=== PATIENT | female | born 1950 | race Caucasian/White ===

== ENCOUNTER 2018-10-27 16:57 | Inpatient (IN) ==
[2018-10-28] MEDS ORDERED: *HR* Acetaminophen w/Cod 300-30 mg 1 TAB TABLET PO PRN ×2 (18:42→21:00)
[2018-10-28] MEDS ORDERED: Ondansetron ODT 4 MG TAB.RAPDIS PO PRN (18:42)
[2018-10-28] MEDS ORDERED: Magic Mouthwash 10 ML UD Cup PO PRN (18:42)
[2018-10-28] MEDS ORDERED: (Rosuvastatin Calcium [Crestor] 5 MG) PO SCH (18:45)
[2018-10-28] MEDS ORDERED: *HR* Warfarin 5 MG TABLET PO SCH (19:30)
[2018-10-28] MEDS: Sucralfate 1 GM TABLET PO SCH (20:40)
[2018-10-28] MEDS: *HR* Amiodarone 200 MG TABLET PO SCH (20:42)
[2018-10-28] MEDS: Doxycycline 100 MG CAPSULE PO SCH (20:43)
[2018-10-28] MEDS: Acetaminophen 325 MG TABLET PO PRN (21:40)
[2018-10-29] MEDS: Sucralfate 1 GM TABLET PO SCH ×4 (03:36→21:35)
[2018-10-29 05:23] LABS: Basophils % 0.3 %; Hematocrit 27.8 % (35.3-44.9); Hemoglobin 8.7 g/dL (11.5-15.4); Immature Granulocytes % 0.6 % (0-4); Lymphocytes # 1.6 K/mcL (0.6-4.6); Lymphocytes % 52.2 %; Mean Corpuscular HGB Conc 31.3 g/dL (31.6-35.5); Mean Corpuscular Hemoglobin 26.4 pg (28.0-33.3); Mean Corpuscular Volume 84.2 fL (83.0-100.0); Mean Platelet Volume 9.8 fL (9.4-12.4); Monocytes # 0.5 K/mcL (0.0-1.3); Monocytes % 16.7 %; Neutrophils # 0.9 K/mcL (1.6-8.9); Platelet Count 213 K/mcL (140-400); Red Cell Distribution Width 21.9 % (11.5-14.5); Segmented Neutrophils % 30.2 %
[2018-10-29 05:28] LABS: INR 1.9
[2018-10-29 05:34] LABS: Anisocytosis 1+ (Not Present); Platelet Estimate Normal (Normal)
[2018-10-29 05:44] LABS: Alanine Aminotransferase 46 Units/L (7-52); Albumin 3.1 g/dL (3.5-5.7); Albumin/Globulin Ratio 2.2 (1.1-2.2); Alkaline Phosphatase 54 Units/L (34-104); Aspartate Amino Transferase 20 Units/L (13-39); BUN/Creatinine Ratio 36 (6-26); Bilirubin,Total 0.8 mg/dL (0.3-1.0); Blood Urea Nitrogen 15 mg/dL (8-23); Calcium 8.6 mg/dL (8.6-10.3); Carbon Dioxide 35 mEq/L (23-29); Chloride 98 mEq/L (98-107); Globulin 1.4 g/dL (2.4-3.5); Glucose 82 mg/dL (70-105); Osmolality,Calculated 286 (280-300); Potassium 4.2 mEq/L (3.5-5.1); Sodium 138 mEq/L (136-145); Total Protein 4.5 g/dL (6.4-8.9); eGFR For Non-African Americans > 60 (> 60)
[2018-10-29] MEDS: Acetaminophen 325 MG TABLET PO PRN ×2 (07:24→16:02)
[2018-10-29] MEDS: CALCITONIN SALMON SYNTHETIC NS SCH (09:43)
[2018-10-29] MEDS: Loratadine 10 MG TABLET PO SCH (09:44)
[2018-10-29] MEDS: Furosemide 40 MG TABLET PO SCH (09:44)
[2018-10-29] MEDS: Multivit/Ca/Min/Fe/FA 1 TAB TABLET PO SCH (09:44)
[2018-10-29] MEDS: predniSONE 10 MG TABLET PO SCH (09:44)
[2018-10-29] MEDS: Doxycycline 100 MG CAPSULE PO SCH ×2 (09:44→20:10)
[2018-10-29] MEDS: Diltiazem CD (24hr) 120 MG CAPSULE PO SCH (09:45)
[2018-10-29] MEDS: *HR* Amiodarone 200 MG TABLET PO SCH ×2 (09:45→20:10)
--- NOTE | 2018-10-29 10:32 | Internal Med History&Physical ---
Addendum entered and electronically signed by Frank Doyle MD 10/29/18 11:36: I have personally performed a face to face evaluation on this patient. I have r eviewed and agree with the care plan. History and Exam by me shows: Patient is admitted after recent atrial fibrillation and pneumonia. She also has heart failure which may be caused by her chemotherapy. She is transferred here for strengthening because of weakness related to same. She wants to get better quickly and go home. She has small cell lung cancer and has been treated for this with chemotherapy which has made her weak and may have exacerbated her atrial fibrillation. She has been placed on immunotherapy and is to have a fourth treatment, sometime soon. Because of her situation, she does not want to be intubated. She would have CPR, cardioversion, etc. Since 2008 she has had CLL and this makes her blood counts have been normal but she is not sure about what numbers were exactly. She was recently begun on Carafate at this makes her belching so she refuses it. When we discussed this, she said she would try again. She has no known esophagitis or ulceration but will use this as a preventative. She had an episode of atrial fibrillation about 2 years ago which she expe rienced while having cataract surgery. She lives noted to have atrial fibrillation with rapid ventricular response about a year ago and has been on Coumadin, ever since. She has hypothyroidism but does not have thyroid surgery. She is treated with levothyroxine, for same. She was a longtime smoker but stopped in 2008. She rarely drinks a glass of wine. She denies drug use. She is retired and . Family history is remarkable for borderline diabetes in her mother. She wears full dentures. Patient has no complaint of chest discomfort, dyspnea, orthopnea, breathing problems, palpitations, nausea or vomiting, constipation or diarrhea, other changes in bowel habits, heartburn, difficulty with urination, kidney problems or kidney stones, fevers chills or sweats, rash or itching, seizures, headache or lightheadedness, heat or cold intolerance, blood problems or anemia, or other new complaints, except as mentioned above. Review of systems is otherwise negative. Examination: (Except as mentioned above): General: In no apparent distress, alert and oriented 3. She is wearing a back brace which limits exam, slightly. Head: Atraumatic and normocephalic. Eyes: Extraocular muscles are intact, pupils equal round and reactive to light and accommodation. Sclerae anicteric. Ears: External ears are normal to inspection and hearing is grossly normal. Nose: Patent without lesion noted. Mouth: No intraoral lesions seen. Dentition is unremarkable. Neck: Supple with trachea midline. There is no thyromegaly or adenopathy and carotids are 2+ without bruit heard. Respiratory: No use of accessory muscles. Lungs are clear throughout. Normal airflow. Cardiovascular: Irregularly irregular rhythm with rapid heart rate, without murmur appreciated. Abdomen: Bowel sounds are normal. No hepatosplenomegaly masses or tenderness. Obese and therefore difficult to palpate deeply. Patient is examined upright in chair and this also limits exam. Extremities: No cyanosis clubbing or edema. Neurological: A and O 3. Cranial nerves II through XII are intact. No focal deficits and no abnormal movements or postures. Skin: Warm and non-diaphoretic with no lesions noted. Breasts, pelvic and rectal: Not examined. INR is 1.9 and we would like to be at least 2.0.. Will watch daily, at least for a while. Will watch her heart rate, as well. Therapies as elucidated and will try to see strengthening to the point that she can be independent at home. She is to be a DNR comfort careDO NOT INTUBATE, as above. Original Note: Date of Encounter: 10/29/18 Time of Encounter: 10:20 Assessment and Plan (1) Pneumonia Current visit: Yes Status: Acute No acute issues at present. Lungs are clear throughout with the exception of basilar rales. No productive cough. Afebrile. Respiratory effort appears rel axed. Physical therapy evaluation pending. We will continue with current plan of care. Qualifiers: Pneumonia type: due to methicillin-resistant Staphylococcus aureus (MRSA) Laterality: right Lung location: upper lobe of lung Qualified Code(s): J15.212 - Pneumonia due to Methicillin resistant Staphylococcus aureus (2) Small cell lung cancer Current visit: Yes Status: Chronic No acute issues. Patient states that her pain currently has been well controlled. 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 TLSO brace and use. Patient to continue follow-up with oncology. Currently patient with palliative care consult (3) Atrial fibrillation with controlled ventricular response Current visit: No Status: Acute No acute issues. Patient's ventricular rate is less than 100. Vital signs are stable. We will continue on current medications. Denies any palpitations Internal Medicine - H&P: HPI Chief complaint: Atrial Fibrillation Admitted From: Hospital to Hospital Transfer Plans for Post Hospital Care: Home History of present illness: Ms. Downing is a 68 year old female, who was transferred here from [facility] where she was treated for atrial fibrillation with RVR and pneumonia. Patient has had a recent history of lung CA with metastasis. Patient states she continues to have slight pain to her thoracic portion of her spine. Per medical records patient has metastases to both the thoracic and lumbar spine. Patient states compliance was wearing TLSO brace whenever out of bed, stating that that has helped her pain by maintaining her alignment. Patient denies any current dyspnea or productive cough. Past Med Surg Social Fam HX - Past Medical History Medical history: atrial fibrillation, cancer, coronary artery disease, hyperlip idemia, hypertension, thyroid disease Additional medical history: CLL. Small Cell Lung Ca, Stress fractures in back. Psychiatric history: no psych history - Past Surgical History Surgical History: breast surgery, cataract, orthopedic, other Additional surgical history: left breast biopsy - Social History Smoking Status: Former smoker Smokeless Tobacco Status: No Alcohol use: none Drug use: none - Family History Mother Family Member Ethnicity: Non- Living Status: Hx Family Cardiac Disorders: Yes (cabg) Hx Family Endocrine Disorder: Yes (dm) Hx Family Neuromuscular Disorders: Yes (several strokes) Internal Medicine - H&P: Meds Levothyroxine [Synthroid] 50 mcg PO 0630 04/02/15 [History] Multivit-Min/FA/Lycopen/Lutein [Centrum Silver Tablet] 1 each PO DAILY 04/02/15 [History] Central-3/Dha/Epa/Fish Oil [Fish Oil 1,000 mg Softgel] 1,000 mg PO HS 04/02/15 [History] Prochlorperazine Maleate [Compazine] 10 mg PO Q8HR PRN #60 tablet 03/05/18 [Rx] Rosuvastatin Calcium [Crestor] 5 mg PO Q48H 03/05/18 [History] Loratadine [Claritin] 10 mg PO DAILY 06/07/18 [History] Acetaminophen w/Cod 300-30 mg [Tylenol w/Codeine #3] 1 each PO Q6HR PRN 09/10/18 [History] Warfarin [Coumadin] 2.5 mg PO MOWEFR 09/10/18 [History] Warfarin [Coumadin] 5 mg PO SUTUTHSA 09/10/18 [History] Calcitonin,Groton,Synthetic [Calcitonin-Groton] 1 spray NS DAILY 09/12/18 [History] Magic Mouthwash 5 ml PO Q4HR PRN #240 ml 10/12/18 [Rx] Pantoprazole Sodium [Protonix] 40 mg PO DAILY 10/20/18 [History] Sucralfate [Carafate] 1 gm PO QIDAC 10/20/18 [History] Amiodarone [Cordarone] 200 mg PO BID 30 Days #60 tablet 10/28/18 [Rx] Diltiazem CD (24hr) [Cardizem CD] 120 mg PO DAILY 30 Days #30 cap.er.24h 10/28/18 [Rx] Doxycycline 100 mg PO BID 3 Days #6 capsule 10/28/18 [Rx] Furosemide [Lasix] 40 mg PO DAILY 3 Days #3 tablet 10/28/18 [Rx] Magnesium Oxide [Mag-Ox] 400 mg PO DAILY tablet 10/28/18 [Rx] Ondansetron [Zofran] 8 mg PO Q8HR PRN 10/28/18 [History] predniSONE [PredniSONE] See Taper PO DAILY #70 tablet 10/28/18 [Rx] Allergy/AdvReac Type Severity Reaction Status Date / Time bacitracin AdvReac Rash Verified 10/12/18 13:32 [From Neosporin ([id number])] Neomycin AdvReac Rash Verified 10/12/18 13:32 [From Neosporin ([id number])] polymyxin B AdvReac Rash Verified 10/12/18 13:32 [From Neosporin ([id number])] All Systems PM: A 10-system review of systems was performed and is negative for pertinent findings except as documented above in the HPI. - Constitutional Constitutional: as per HPI, no chills, no fever(s), no night sweats - EENT Eyes: no change in vision, no discharge, no pain, no photophobia Ears: as per HPI, no ear discharge, no ear pain, no tinnitus Nose, mouth and throat: as per HPI, no dysphagia, no nasal discharge, no neck pain, no sore throat - Breasts Breasts: as per HPI - Cardiovascular Cardiovascular ROS IM: as per HPI, no chest pain, no diaphoresis, no dyspnea, no lightheadedness, no palpitations, no syncope - Respiratory Respiratory: as per HPI, no cough, no dyspnea, no wheezing, no excessive phlegm production - Gastrointestinal Gastrointestinal: as per HPI, no abdominal pain, no diarrhea, no hematemesis, no hematochezia, no melena, no nausea, no vomiting - Genitourinary Genitourinary: as per HPI, no change in urinary stream, no dysuria, no flank pain, no hematuria - Musculoskeletal Musculoskeletal ROS IM: as per HPI, no numbness, no tingling - Integumentary Integumentary IM: as per HPI, no rash, no unusual bruising - Neurological Neurological ROS: as per HPI, no confusion, no convulsions, no focal weakness, no numbness, no tingling, no tremor(s) - Hematologic/Lymphatic Hematologic/Lymphatic: no easy bruising - Constitutional Vitals: Temp Pulse Resp BP Pulse Ox 97.8 F 96 16 113/70 96 10/29/18 09:00 10/29/18 09:00 10/29/18 09:00 10/29/18 09:00 10/29/18 09:00 General appearance: Present: A&O X 3, pleasant - Head Head exam: Present: atraumatic, normocephalic - Eye Eye exam: Present: PERRL, conjuntiva pink, sclera anicteric Pupils: Present: PERRL - Neck Neck exam general surgery: Present: supple, trachea midline. Absent: lymphadenopathy - Respiratory Respiratory exam: Present: CTAB. Absent: accessory muscle use, rales, rhonchi, wheezes Additional comments: Lungs are clear throughout upper borden with fine basilar rales heard po steriorly. No productive cough noted. Respiratory effort appears relaxed. - Cardiovascular Cardiovascular exam: Present: irregular rhythm, RRR, +S1, +S2. Absent: diastolic murmur, gallop, rubs, systolic murmur Additional comments: Heart rate remains irregular with ventricular rate controlled less than 100 bpm - GI/Abdominal GI/Abdominal exam: Present: normal bowel sounds, soft, no peritoneal signs. Absent: distended, tenderness - Extremities Exam Extremities exam: Present: warm, radial pulses palpable and symmetrical. Absent: calf tenderness, cyanotic, pedal edema - Back Exam Additional comments: Patient with complaints of pain to her back but denies any tenderness on palpation. No obvious injury, deformity or step-offs noted on exam. TLSO brace in use - Neurological Exam Neurological exam: Present: CN II-XII intact, oriented X3, no focal deficits. Absent: pronater drift, facial droop, speech deficit - Skin Skin exam: Present: dry, intact Internal Med - H&P Results - Labs CBC & Chem 7: 10/29/18 04:35 10/29/18 04:35 Labs: Short CBC 10/29/18 Range/Units 04:35 WBC 3.1 L (4.3-11.1) K/mcL Hgb 8.7 L (11.5-15.4) g/dL Hct 27.8 L (35.3-44.9) % Plt Count 213 (140-400) K/mcL Neutrophils # 0.9 L (1.6-8.9) K/mcL BMP 10/29/18 04:35 Sodium 138 Potassium 4.2 Chloride 98 Carbon Dioxide 35 H BUN 15 Creatinine 0.42 L Glucose 82 Calcium 8.6 Liver Function 10/29/18 Range/Units 04:35 Total Bilirubin 0.8 (0.3-1.0) mg/dL AST 20 (13-39) Units/L ALT 46 (7-52) Units/L Alkaline Phosphatase 54 (34-104) Units/L Albumin 3.1 L (3.5-5.7) g/dL
[2018-10-29] MEDS ORDERED: Warfarin perPT PO PRN (13:46)
[2018-10-29] MEDS ORDERED: *HR* Warfarin 3 MG TABLET PO ONE (18:00)
[2018-10-29] MEDS ORDERED: *HR* Warfarin 2.5 MG TABLET PO SCH (18:00)
[2018-10-30] MEDS: Sucralfate 1 GM TABLET PO SCH ×4 (04:58→23:16)
[2018-10-30 07:32] LABS: INR 2.2; Prothrombin Time 24.6 Seconds (9.4-12.1)
[2018-10-30] MEDS: predniSONE 10 MG TABLET PO SCH (09:33)
[2018-10-30] MEDS: Multivit/Ca/Min/Fe/FA 1 TAB TABLET PO SCH (09:33)
[2018-10-30] MEDS: Furosemide 40 MG TABLET PO SCH (09:33)
[2018-10-30] MEDS: Loratadine 10 MG TABLET PO SCH (09:33)
[2018-10-30] MEDS: Diltiazem CD (24hr) 120 MG CAPSULE PO SCH (09:33)
[2018-10-30] MEDS: *HR* Amiodarone 200 MG TABLET PO SCH ×2 (09:33→19:56)
[2018-10-30] MEDS: Doxycycline 100 MG CAPSULE PO SCH ×2 (09:34→19:57)
[2018-10-30] MEDS: CALCITONIN SALMON SYNTHETIC NS SCH (09:34)
[2018-10-30] MEDS: Acetaminophen 325 MG TABLET PO PRN (15:13)
--- NOTE | 2018-10-30 18:01 | Internal Med Progress Note ---
Date of Encounter: 10/30/18 Time of Encounter: 17:20 - Assessment and plan (1) Small cell lung cancer Current Visit: Yes Status: Chronic Assessment and plan: No acute issues. Patient states that her pain currently has been well controlled. 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 TLSO brace and use. Patient to continue follow-up with oncology. Currently patient with palliative care consult (2) Atrial fibrillation with controlled ventricular response Current Visit: No Status: Acute Assessment and plan: Continue current regimen, including warfarin. (3) Pneumonia Current Visit: Yes Status: Acute Assessment and plan: Continue current antibiotic regimen. Wean oxygen as tolerated. Qualifiers: Pneumonia type: due to methicillin-resistant Staphylococcus aureus (MRSA) Laterality: right Lung location: upper lobe of lung Qualified Code(s): J15.212 - Pneumonia due to Methicillin resistant Staphylococcus aureus (4) Normocytic anemia Current Visit: Yes Status: Acute Assessment and plan: CBC in the morning, will obtain FOBT if down-trending. - Time Spent With Patient less than 15 minutes - Subjective Interval history: Doing well. No concern. Working with therapists. - Constitutional Vitals: Temp Pulse Resp BP Pulse Ox 97.5 F L 89 14 113/74 93 10/30/18 09:00 10/30/18 09:00 10/30/18 09:00 10/30/18 09:00 10/30/18 09:00 General appearance: Present: A&O X 3, pleasant Exam: Gen: A&Ox3, NAD. HEENT: NCAT. Neck: No palpable lymphadenopathy or thyromegaly. CV: RRR, S1S2. 2/6, systolic murmur. Capillary refill < 2 seconds. Pulm: Diminished air exchange in the left lung borden. Abd: TLSO brace noted. Neuro: Generalized weakness, otherwise non-focal. Skin: No rash. Ext: 1(+) pitting edema in bilateral LE. Internal Medicine: Result - Labs CBC & Chem 7: 10/29/18 04:35 10/29/18 04:35 - ABG Interpretation ABG results: PT/INR, D-dimer PT 24.6 Seconds (9.4-12.1) H 10/30/18 06:55 Consult Discharge Plan - Plan Referrals: Ken Watson MD [Primary Care Provider] -
[2018-10-31] MEDS: Sucralfate 1 GM TABLET PO SCH ×4 (05:25→20:33)
[2018-10-31 07:06] LABS: Hematocrit 29.4 % (35.3-44.9); Hemoglobin 9.1 g/dL (11.5-15.4); Mean Corpuscular Hemoglobin 26.6 pg (28.0-33.3); Mean Platelet Volume 9.6 fL (9.4-12.4); Platelet Count 234 K/mcL (140-400); Red Blood Count 3.42 M/mcL (3.82-4.97)
[2018-10-31 07:19] LABS: INR 1.9; Prothrombin Time 21.1 Seconds (9.4-12.1)
[2018-10-31] MEDS: Multivit/Ca/Min/Fe/FA 1 TAB TABLET PO SCH (08:42)
[2018-10-31] MEDS: *HR* Amiodarone 200 MG TABLET PO SCH ×2 (08:42→20:33)
[2018-10-31] MEDS: Acetaminophen 325 MG TABLET PO PRN (08:42)
[2018-10-31] MEDS: Diltiazem CD (24hr) 120 MG CAPSULE PO SCH (08:42)
[2018-10-31] MEDS: Doxycycline 100 MG CAPSULE PO SCH (08:42)
[2018-10-31] MEDS: Loratadine 10 MG TABLET PO SCH (08:42)
[2018-10-31] MEDS: Furosemide 40 MG TABLET PO SCH (08:43)
[2018-10-31] MEDS: CALCITONIN SALMON SYNTHETIC NS SCH (08:43)
[2018-10-31] MEDS: predniSONE 10 MG TABLET PO SCH (08:43)
--- NOTE | 2018-10-31 13:35 | Internal Med Progress Note ---
Date of Encounter: 10/31/18 Time of Encounter: 13:10 - Assessment and plan (1) Small cell lung cancer Current Visit: Yes Status: Chronic Assessment and plan: No acute issues. Patient states that her pain currently has been well controlled. 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 TLSO brace and use. Patient to continue follow-up with oncology. Currently patient with palliative care consult (2) Atrial fibrillation with controlled ventricular response Current Visit: No Status: Acute Assessment and plan: Continue current regimen, including warfarin. (3) Pneumonia Current Visit: Yes Status: Acute Assessment and plan: Continue current antibiotic regimen. Wean oxygen as tolerated. Qualifiers: Pneumonia type: due to methicillin-resistant Staphylococcus aureus (MRSA) Laterality: right Lung location: upper lobe of lung Qualified Code(s): J15.212 - Pneumonia due to Methicillin resistant Staphylococcus aureus (4) Normocytic anemia Current Visit: Yes Status: Acute Assessment and plan: CBC appears stable. Continue to monitor as appropriate. - Time Spent With Patient less than 15 minutes - Subjective Interval history: Doing well. No concern. Working with therapists. - Constitutional Vitals: Temp Pulse Resp BP Pulse Ox 97.4 F L 86 17 101/61 97 10/31/18 07:40 10/31/18 07:40 10/31/18 07:40 10/31/18 07:40 10/31/18 08:15 General appearance: Present: A&O X 3, pleasant Exam: Gen: A&Ox3, NAD. HEENT: NCAT. Neck: No palpable lymphadenopathy or thyromegaly. CV: RRR, S1S2. 2/6, systolic murmur. Capillary refill < 2 seconds. Pulm: Diminished air exchange in the left lung borden. Abd: TLSO brace noted. Neuro: Generalized weakness, otherwise non-focal. Skin: No rash. Ext: Trace pitting edema in bilateral LE. Internal Medicine: Result - Labs CBC & Chem 7: 10/31/18 06:40 10/29/18 04:35 Labs: Short CBC 10/31/18 Range/Units 06:40 WBC 3.6 L (4.3-11.1) K/mcL Hgb 9.1 L (11.5-15.4) g/dL Hct 29.4 L (35.3-44.9) % Plt Count 234 (140-400) K/mcL - ABG Interpretation ABG results: PT/INR, D-dimer PT 21.1 Seconds (9.4-12.1) H 10/31/18 06:40 Consult Discharge Plan - Plan Referrals: Ken Watson MD [Primary Care Provider] -
[2018-10-31] MEDS ORDERED: *HR* Warfarin 5 MG TABLET PO ONE (18:00)
[2018-10-31] MEDS: Magnesium Oxide 400 MG TABLET PO SCH (20:33)
[2018-11-01] MEDS: Sucralfate 1 GM TABLET PO SCH ×4 (06:30→20:40)
[2018-11-01 07:37] LABS: INR 1.7
[2018-11-01] MEDS: predniSONE 10 MG TABLET PO SCH (09:30)
[2018-11-01] MEDS: *HR* Amiodarone 200 MG TABLET PO SCH ×2 (09:30→20:40)
[2018-11-01] MEDS: Magnesium Oxide 400 MG TABLET PO SCH (09:31)
[2018-11-01] MEDS: Multivit/Ca/Min/Fe/FA 1 TAB TABLET PO SCH (09:31)
[2018-11-01] MEDS: Loratadine 10 MG TABLET PO SCH (09:31)
[2018-11-01] MEDS: Diltiazem CD (24hr) 120 MG CAPSULE PO SCH (09:31)
[2018-11-01] MEDS: Furosemide 40 MG TABLET PO SCH (09:31)
[2018-11-01] MEDS: CALCITONIN SALMON SYNTHETIC NS SCH (09:32)
--- NOTE | 2018-11-01 11:30 | Internal Med Progress Note ---
Addendum entered and electronically signed by Frank Doyle MD 11/01/18 13:30: I have personally performed a face to face evaluation on this patient. I have r eviewed and agree with the care plan. History and Exam by me shows: Patient is without complaint and wants to go home. She has been having normal bowel movements and bladder is functioning well. She denies other problems. Her pain is minimal. Discussed care with other providers and/or nursing. Patient has no complaint of chest discomfort, dyspnea, orthopnea, palpitations, nausea or vomiting, constipation or diarrhea, other changes in bowel habits, difficulty with urination, rash or itching, or other new complaints, except as mentioned above. Review of systems is otherwise negative. Examination: (Except as mentioned above): General: In no apparent distress. Alert and oriented 3. Nondiaphoretic. Head: Atraumatic and normocephalic. Respiratory: No use of accessory muscles. Lungs are clear throughout. Normal airflow. Cardiovascular: Regular rate and rhythm without murmur appreciated. Abdomen: Bowel sounds are normal. No hepatosplenomegaly mass or tenderness appreciated. Obese and therefore difficult to palpate deeply. Patient is examined upright in chair and this also limits exam. Extremities: No cyanosis clubbing or edema. Skin: Warm and non-diaphoretic with no new lesions noted. We will plan to discharge her in about 2 days. Original Note: Date of Encounter: 11/01/18 Time of Encounter: 11:28 - Assessment and plan (1) Small cell lung cancer Current Visit: Yes Status: Chronic Assessment and plan: Lung cancer with meds to thoracic and lumbar spine. Wearing TLSO brace. Pain controlled with current medication. Follow up with oncologist as scheduled. Maintaining oxygen sets at or liters per nasal cannula. (2) Atrial fibrillation Current Visit: Yes Status: Chronic Assessment and plan: Rate and rhythm controlled. Continue current medication. Continue Coumadin. Monitor INR. Qualifiers: Atrial fibrillation type: chronic Qualified Code(s): I48.2 - Chronic atrial fibrillation - Time Spent With Patient less than 15 minutes - Subjective Interval history: Participating well with therapy. Maintaining oxygen saturation greater than 92% at 4 L per nasal cannula. Wearing TLSO brace. States pain is controlled. States bowels are moving as normal. Denies fever, chills, nausea vomiting or diarrhea. Denies any increased shortness of breath or chest pain. - Constitutional Vitals: Temp Pulse Resp BP Pulse Ox 98.1 F 80 18 110/67 96 11/01/18 08:40 11/01/18 09:30 11/01/18 08:40 11/01/18 09:30 11/01/18 08:40 General appearance: Present: cooperative, A&O X 3, pleasant, no acute distress, answers questions appropriately - Head Head exam: Present: atraumatic, normocephalic - Eye Eye exam: Present: PERRL, conjuntiva pink, sclera anicteric Pupils: Present: PERRL - Neck Neck exam general surgery: Present: supple, trachea midline. Absent: lymphadenopathy - Respiratory Respiratory exam: Present: CTAB. Absent: accessory muscle use, rales, rhonchi, wheezes Additional comments: Diminished bilateral bases - Cardiovascular Cardiovascular exam: Present: RRR, +S1, +S2. Absent: diastolic murmur, gallop, rubs, systolic murmur - GI/Abdominal GI/Abdominal exam: Present: normal bowel sounds, soft, no peritoneal signs. Absent: distended, tenderness - Extremities Exam Extremities exam: Present: warm, radial pulses palpable and symmetrical. Absent: calf tenderness, cyanotic, pedal edema Additional comments: Francis hose on bilateral lower extremities - Neurological Exam Neurological exam: Present: CN II-XII intact, oriented X3, no focal deficits. Absent: pronater drift, facial droop, speech deficit - Skin Skin exam: Present: dry, intact Internal Medicine: Result - Labs CBC & Chem 7: 10/31/18 06:40 10/29/18 04:35 - ABG Interpretation ABG results: PT/INR, D-dimer PT 19.0 Seconds (9.4-12.1) H 11/01/18 06:25 Consult Discharge Plan - Plan Referrals: Ken Watson MD [Primary Care Provider] -
[2018-11-01] MEDS ORDERED: *HR* Enoxaparin 40 MG/0.4 ML SYRINGE SQ SCH (16:00)
[2018-11-01] MEDS ORDERED: *HR* Warfarin 5 MG TABLET PO ONE (18:00)
[2018-11-02] MEDS: Sucralfate 1 GM TABLET PO SCH ×4 (05:43→21:29)
[2018-11-02 06:18] LABS: INR 2.1; Prothrombin Time 23.8 Seconds (9.4-12.1)
[2018-11-02] MEDS: *HR* Amiodarone 200 MG TABLET PO SCH ×2 (07:46→19:42)
[2018-11-02] MEDS: Magnesium Oxide 400 MG TABLET PO SCH (07:46)
[2018-11-02] MEDS: Diltiazem CD (24hr) 120 MG CAPSULE PO SCH (07:46)
[2018-11-02] MEDS: Furosemide 40 MG TABLET PO SCH (07:46)
[2018-11-02] MEDS: predniSONE 10 MG TABLET PO SCH (07:46)
[2018-11-02] MEDS: Loratadine 10 MG TABLET PO SCH (07:47)
[2018-11-02] MEDS: CALCITONIN SALMON SYNTHETIC NS SCH (07:47)
[2018-11-02] MEDS: Multivit/Ca/Min/Fe/FA 1 TAB TABLET PO SCH (07:47)
--- NOTE | 2018-11-02 12:17 | Internal Med Progress Note ---
Addendum entered and electronically signed by Frank Doyle MD 11/02/18 13:01: I have personally performed a face to face evaluation on this patient. I have r eviewed and agree with the care plan. History and Exam by me shows: Patient is without complaint. She is noting that her pain has improved, and her back, significantly. Bowels and bladder are functioning well. She denies other problems. Discussed care with other providers and/or nursing. Patient has no complaint of chest discomfort, dyspnea, orthopnea, palpitations, nausea or vomiting, constipation or diarrhea, other changes in bowel habits, difficulty with urination, rash or itching, or other new complaints, except as mentioned above. Review of systems is otherwise negative. Examination: (Except as mentioned above): General: In no apparent distress. Alert and oriented 3. Nondiaphoretic. She is wearing her clamshell brace. Head: Atraumatic and normocephalic. Respiratory: No use of accessory muscles. Lungs are clear throughout. Normal airflow. Cardiovascular: Regular rate and rhythm without murmur appreciated. Abdomen: Bowel sounds are normal. No hepatosplenomegaly mass or tenderness appreciated. Obese and therefore difficult to palpate deeply. Patient is examin ed upright in chair and this also limits exam. Extremities: No cyanosis clubbing or edema. Skin: Warm and non-diaphoretic with no new lesions noted. Original Note: Date of Encounter: 11/02/18 Time of Encounter: 12:15 - Assessment and plan (1) Pneumonia Current Visit: Yes Status: Acute Assessment and plan: No acute issues. Patient's lungs are clear throughout upper [place]. Cough. Remains afebrile. Patient dyspnea physical therapy and progressed well. We will continue with current plan of care. Qualifiers: Pneumonia type: due to methicillin-resistant Staphylococcus aureus (MRSA) Laterality: right Lung location: upper lobe of lung Qualified Code(s): J15.212 - Pneumonia due to Methicillin resistant Staphylococcus aureus (2) Small cell lung cancer Current Visit: Yes Status: Chronic Assessment and plan: No acute issues. We will continue with supportive care. Patient continues with complaints of slight pain to her back at her vertebral metastasis sites. which she states is tolerable with current pain medications. Continues a TLSO. (3) Atrial fibrillation with controlled ventricular response Current Visit: No Status: Acute Assessment and plan: Currently patient's heart rate is regular with a controlled ventricular rate less than 100. Vital signs are stable. We will continue with current medications. - Time Spent With Patient less than 15 minutes - Subjective Interval history: Patient appears relaxed and currently denies any discomforts or shortness of breath. Patient denies any chest palpitations. Patient does have complaints of small amount of blood tinge in her nasal drainage when she blows her nose. - Constitutional Vitals: Temp Pulse Resp BP Pulse Ox 98.1 F 87 16 108/72 97 11/02/18 08:05 11/02/18 08:05 11/02/18 08:05 11/02/18 08:05 11/02/18 08:05 General appearance: Present: cooperative, A&O X 3, pleasant, no acute distress, answers questions appropriately - Head Head exam: Present: atraumatic, normocephalic - Eye Eye exam: Present: PERRL, conjuntiva pink, sclera anicteric Pupils: Present: PERRL - Neck Neck exam general surgery: Present: supple, trachea midline. Absent: lymphadenopathy - Respiratory Respiratory exam: Present: CTAB. Absent: accessory muscle use, rales, rhonchi, wheezes - Cardiovascular Cardiovascular exam: Present: RRR, +S1, +S2. Absent: diastolic murmur, gallop, rubs, systolic murmur - GI/Abdominal GI/Abdominal exam: Present: normal bowel sounds, soft, no peritoneal signs. Absent: distended, tenderness - Extremities Exam Extremities exam: Present: warm, radial pulses palpable and symmetrical. Absent: calf tenderness, cyanotic, pedal edema - Back Exam Additional comments: No complaints of discomforts during palpitation. No deformity or step-offs noted on palpitation. TLSO brace in place when OOB - Neurological Exam Neurological exam: Present: CN II-XII intact, oriented X3, no focal deficits. Absent: pronater drift, facial droop, speech deficit - Skin Skin exam: Present: dry, intact Internal Medicine: Result - Labs CBC & Chem 7: 10/31/18 06:40 10/29/18 04:35 - ABG Interpretation ABG results: PT/INR, D-dimer PT 23.8 Seconds (9.4-12.1) H 11/02/18 05:35 Consult Discharge Plan - Plan Referrals: Ken Watson MD [Primary Care Provider] -
[2018-11-02] MEDS ORDERED: *HR* Warfarin 2.5 MG TABLET PO ONE (18:00)
[2018-11-02] MEDS: Acetaminophen 325 MG TABLET PO PRN (19:42)
[2018-11-03] MEDS: Sucralfate 1 GM TABLET PO SCH ×2 (05:01→12:10)
[2018-11-03 05:47] LABS: INR 2.4; Prothrombin Time 27.5 Seconds (9.4-12.1)
[2018-11-03 09:01] VITALS: BP 105/68
[2018-11-03] MEDS: *HR* Amiodarone 200 MG TABLET PO SCH (09:01)
[2018-11-03] MEDS: Loratadine 10 MG TABLET PO SCH (09:01)
[2018-11-03] MEDS: Furosemide 40 MG TABLET PO SCH (09:01)
[2018-11-03] MEDS: Diltiazem CD (24hr) 120 MG CAPSULE PO SCH (09:01)
[2018-11-03] MEDS: predniSONE 10 MG TABLET PO SCH (09:01)
[2018-11-03] MEDS: Magnesium Oxide 400 MG TABLET PO SCH (09:01)
[2018-11-03] MEDS: Multivit/Ca/Min/Fe/FA 1 TAB TABLET PO SCH (09:01)
[2018-11-03] MEDS: CALCITONIN SALMON SYNTHETIC NS SCH (09:19)
--- NOTE | 2018-11-03 10:36 | Discharge Summary ---
Addendum entered and electronically signed by Frank Doyle MD 11/03/18 11:34: I have personally performed a face to face evaluation on this patient. I have r eviewed and agree with the care plan. History and Exam by me shows: She has no complaints. He is pleased to be going home. She had a "twinge" of pain in the left posterior thorax, earlier today. However, this resolved spontaneously. Bowels and bladder functioning well. She has no questions for me regarding home-going instructions. Discussed care with other providers and/or nursing. Patient has no complaint of chest discomfort, dyspnea, orthopnea, palpitations, nausea or vomiting, constipation or diarrhea, other changes in bowel habits, difficulty with urination, rash or itching, or other new complaints, except as mentioned above. Review of systems is otherwise negative. Examination: (Except as mentioned above): General: In no apparent distress. Alert and oriented 3. Nondiaphoretic. Head: Atraumatic and normocephalic. Respiratory: No use of accessory muscles. Lungs are clear throughout. Normal airflow. Cardiovascular: Regular rate and rhythm without murmur appreciated. Abdomen: Bowel sounds are normal. No hepatosplenomegaly mass or tenderness appreciated. Obese and therefore difficult to palpate deeply. Patient is examined upright in chair and this also limits exam. Extremities: No cyanosis clubbing or edema. Skin: Warm and non-diaphoretic with no new lesions noted. Original Note: Orders not resulted at time of discharge: Pending orders 11/04/18 04:00 Prothrombin Time INR [COAG] AM 0400 Date of Encounter: 11/03/18 Time of Encounter: 10:34 - Discharge Diagnosis (1) Pneumonia Priority: Primary Status: Acute Comments: Patient was originally treated at acute care facility for pneumonia, which has also resolved prior to admission to this facility. No acute pulmonary issues were noted during her stay here. Patient remains on oxygen at 4 L which is what she uses at home. Patient continues to have slight dyspnea on exertion but has progressed well through physical therapy. He with history of lung CA. Patient is being discharged with a prescription for a portable oxygen concentrator. Patient is to follow up with her wire rigger, oncologist and PCP after discharge. Qualifiers: Pneumonia type: due to methicillin-resistant Staphylococcus aureus (MRSA) Laterality: right Lung location: upper lobe of lung Qualified Code(s): J15.212 - Pneumonia due to Methicillin resistant Staphylococcus aureus (2) Small cell lung cancer Priority: Secondary Status: Chronic Comments: No acute issues during her stay at this facility. Patient continues to have pain to her back, where she has metastasis to 2 vertebrae. Continues to use TLSO brace. Patient is to follow-up with her oncologist and PCP after discharge (3) Atrial fibrillation with controlled ventricular response Priority: Secondary Status: Acute Comments: Patient's heart rate has remained regular during her stay. Patient originally was admitted for atrial fibrillation with RVR. Ventricular rate remains less than 100. We will continue on current medications and patient is to continue follow-up with her beading installer and PCP Hospital course: Ms. Downing is a 68 year old female, who was transferred here from [facility] where she was treated for atrial fibrillation with RVR and pneumonia. Patient has had a recent history of lung CA with metastasis to spine/liver. Patient states she continues to have slight pain to her thoracic portion of her spine, but denies any need for medication. Patient has had minimal use of pain medication during her stay. Per medical records patient has metastases to both the thoracic and lumbar spine. Patient states compliance was wearing TLSO brace whenever out of bed, stating that that has helped her pain by maintaining her alignment. Patient denies any current dyspnea or productive cough, although she does become somewhat winded during exertion while at therapy. Has remained afebrile. Patient is being discharged to home and is to continue her physical therapy through home health services. Patient is a continue her follow-up with her consultants and PCP. Patient is being provided with prescriptions for her medications and for a portable O2 concentrator. Discharge discussed with: patient Time spent discussing smoking cessation with patient: 3 to 10 minutes - Time Spent with Patient Total time spent providing and/or coordinating discharge services: Time spent: Less than 30 minutes - Discharge Medications Prescriptions: No Action Levothyroxine [Synthroid] 50 mcg PO 0630 [place]-3/Dha/Epa/Fish Oil [Fish Oil 1,000 mg Softgel] 1,000 mg PO HS Multivit-Min/FA/Lycopen/Lutein [Centrum Silver Tablet] 1 each PO DAILY Rosuvastatin Calcium [Crestor] 5 mg PO Q48H Prochlorperazine Maleate [Compazine] 10 mg PO Q8HR PRN #60 tablet PRN Reason: Nausea Loratadine [Claritin] 10 mg PO DAILY Acetaminophen w/Cod 300-30 mg [Tylenol w/Codeine #3] 1 each PO Q6HR PRN PRN Reason: Pain Warfarin [Coumadin] 5 mg PO SUTUTHSA Warfarin [Coumadin] 2.5 mg PO MOWEFR Calcitonin,[place],Synthetic [Calcitonin-[place]] 1 spray NS DAILY Magic Mouthwash 5 ml PO Q4HR PRN #240 ml PRN Reason: Mouth Irritation Sucralfate [Carafate] 1 gm PO QIDAC Pantoprazole Sodium [Protonix] 40 mg PO DAILY Amiodarone [Cordarone] 200 mg PO BID 30 Days #60 tablet Diltiazem CD (24hr) [Cardizem CD] 120 mg PO DAILY 30 Days #30 cap.er.24h Magnesium Oxide [Mag-Ox] 400 mg PO DAILY tablet predniSONE [PredniSONE] See Taper PO DAILY #70 tablet Ondansetron [Zofran] 8 mg PO Q8HR PRN PRN Reason: Nausea Home Medications: Levothyroxine [Synthroid] 50 mcg PO 0630 04/02/15 [History] Multivit-Min/FA/Lycopen/Lutein [Centrum Silver Tablet] 1 each PO DAILY 04/02/15 [History] [place]-3/Dha/Epa/Fish Oil [Fish Oil 1,000 mg Softgel] 1,000 mg PO HS 04/02/15 [History] Prochlorperazine Maleate [Compazine] 10 mg PO Q8HR PRN #60 tablet 03/05/18 [Rx] Rosuvastatin Calcium [Crestor] 5 mg PO Q48H 03/05/18 [History] Loratadine [Claritin] 10 mg PO DAILY 06/07/18 [History] Acetaminophen w/Cod 300-30 mg [Tylenol w/Codeine #3] 1 each PO Q6HR PRN 09/10/18 [History] Warfarin [Coumadin] 2.5 mg PO MOWEFR 09/10/18 [History] Warfarin [Coumadin] 5 mg PO SUTUTHSA 09/10/18 [History] Calcitonin,[place],Synthetic [Calcitonin-[place]] 1 spray NS DAILY 09/12/18 [History] Magic Mouthwash 5 ml PO Q4HR PRN #240 ml 10/12/18 [Rx] Pantoprazole Sodium [Protonix] 40 mg PO DAILY 10/20/18 [History] Sucralfate [Carafate] 1 gm PO QIDAC 10/20/18 [History] Amiodarone [Cordarone] 200 mg PO BID 30 Days #60 tablet 10/28/18 [Rx] Diltiazem CD (24hr) [Cardizem CD] 120 mg PO DAILY 30 Days #30 cap.er.24h 10/28/18 [Rx] Magnesium Oxide [Mag-Ox] 400 mg PO DAILY tablet 10/28/18 [Rx] Ondansetron [Zofran] 8 mg PO Q8HR PRN 10/28/18 [History] predniSONE [PredniSONE] See Taper PO DAILY #70 tablet 10/28/18 [Rx] Allergies/Adverse Reactions: Allergy/AdvReac Type Severity Reaction Status Date / Time bacitracin AdvReac Rash Verified 10/12/18 13:32 [From Neosporin ([id number])] Neomycin AdvReac Rash Verified 10/12/18 13:32 [From Neosporin ([id number])] polymyxin B AdvReac Rash Verified 10/12/18 13:32 [From Neosporin ([id number])] Date of admission: 10/28/18 18:14 Primary care physician: Ken Watson MD Consults: 10/28/18 18:38 Consult to Occupational Therapy [CONS] Routine Comment: 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 lung Reason for Consult: eval Does patient have active BEDREST order?: No Is patient medically & hemodynamically stable?: Yes Consult to Physical Therapy [CONS] Routine Comment: eval lung ca stage 4 bone mets fx to spine and rib Reason for Consult: eval Does patient have active BEDREST order?: No Is patient medically & hemodynamically stable?: Yes Consult to Recreational Therapy [CONS] Routine Comment: Consult to Android Ui Developer [CONS] Routine Reason for SW Consult: d/c planning 10/28/18 18:54 Consult to Physical Medicine/Rehab [CONS] Routine Reason for Consult: Please evaluate and manage therapies' guidelines and recommend pathway to reconditioning. Call Completed: Yes Discharging clinician: Frank Doyle - Constitutional Vitals: Temp Pulse Resp BP Pulse Ox 97.8 F 89 18 105/68 97 11/03/18 07:15 11/03/18 09:00 11/03/18 07:15 11/03/18 09:00 11/03/18 07:15 General appearance: Present: cooperative, A&O X 3, pleasant, no acute distress, answers questions appropriately - Head Head exam: Present: atraumatic, normocephalic - Eye Eye exam: Present: PERRL, conjuntiva pink, sclera anicteric Pupils: Present: PERRL - Neck Neck exam general surgery: Present: supple, trachea midline. Absent: lymphadenopathy - Respiratory Respiratory exam: Present: decreased breath sounds, CTAB. Absent: accessory muscle use, rales, rhonchi, wheezes - Cardiovascular Cardiovascular exam: Present: RRR, +S1, +S2. Absent: diastolic murmur, gallop, rubs, systolic murmur - GI/Abdominal GI/Abdominal exam: Present: normal bowel sounds, soft, no peritoneal signs. Absent: distended, tenderness - Extremities Exam Extremities exam: Present: warm, radial pulses palpable and symmetrical. Absent: calf tenderness, cyanotic, pedal edema - Back Exam Additional comments: Patient with complaint of slight tenderness during palpation of thoracic area but otherwise denies any issues. No deformity or step-offs noted. TLSO brace is in use. - Neurological Exam Neurological exam: Present: CN II-XII intact, oriented X3, no focal deficits. Absent: pronater drift, facial droop, speech deficit - Skin Skin exam: Present: dry, intact - Patient Status Disposition: Home Health Service Condition: Good Functional capacity at discharge: uses cane/walker Overall status at discharge: patient is progressing back to baseline - Discharge Instructions Follow Up With: Ken Watson MD [Primary Care Provider] - - Diet and Activity Activity: ambulate only with your walker, as per physical therapy, increase activity as tolerated Diet: low fat, low cholesterol, low salt diet
--- NOTE | 2018-11-03 13:48 | Physician Discharge Referral ---
Home Health/Hosp Referral Info Transfer to: Home Health Provider in Charge Post Discharge: PCP - Diagnosis (1) Pneumonia Priority: Primary Status: Acute (2) Small cell lung cancer Priority: Secondary Status: Chronic (3) Atrial fibrillation with controlled ventricular response Priority: Secondary Status: Acute - Respiratory Orders Smoking Cessation: Smoking cessation has been advised. For more information, call the [place] Tobacco Quit Line at 9-031-[facility]-NOW. - Diet/Nutrition Diet/Nutrition Orders: No Added Salt (JACKIE), Cardiac - Activity Activity Orders: Up ad hui, Walker - Services Needed Following services are medically necessary services: Nursing, Physical Therapy - Transfer Medications Prescriptions: Amiodarone [Cordarone] 200 mg PO BID #60 tablet Diltiazem CD (24hr) [Cardizem CD] 120 mg PO DAILY #30 cap.er.24h Furosemide [Lasix] 40 mg PO DAILY #30 tab Magnesium Oxide 400 mg PO DAILY #30 tablet predniSONE [PredniSONE] 30 mg PO DAILY #30 tablet Home Medications: Levothyroxine [Synthroid] 50 mcg PO 0630 04/02/15 [History] Multivit-Min/FA/Lycopen/Lutein [Centrum Silver Tablet] 1 each PO DAILY 04/02/15 [History] [place]-3/Dha/Epa/Fish Oil [Fish Oil 1,000 mg Softgel] 1,000 mg PO HS 04/02/15 [History] Prochlorperazine Maleate [Compazine] 10 mg PO Q8HR PRN #60 tablet 03/05/18 [Rx] Rosuvastatin Calcium [Crestor] 5 mg PO Q48H 03/05/18 [History] Loratadine [Claritin] 10 mg PO DAILY 06/07/18 [History] Acetaminophen w/Cod 300-30 mg [Tylenol w/Codeine #3] 1 each PO Q6HR PRN 09/10/18 [History] Warfarin [Coumadin] 2.5 mg PO MOWEFR 09/10/18 [History] Warfarin [Coumadin] 5 mg PO SUTUTHSA 09/10/18 [History] Calcitonin,[place],Synthetic [Calcitonin-[place]] 1 spray NS DAILY 09/12/18 [History] Magic Mouthwash 5 ml PO Q4HR PRN #240 ml 10/12/18 [Rx] Pantoprazole Sodium [Protonix] 40 mg PO DAILY 10/20/18 [History] Sucralfate [Carafate] 1 gm PO QIDAC 10/20/18 [History] Amiodarone [Cordarone] 200 mg PO BID 30 Days #60 tablet 10/28/18 [Rx] Diltiazem CD (24hr) [Cardizem CD] 120 mg PO DAILY 30 Days #30 cap.er.24h 10/28/18 [Rx] Magnesium Oxide [Mag-Ox] 400 mg PO DAILY tablet 10/28/18 [Rx] Ondansetron [Zofran] 8 mg PO Q8HR PRN 10/28/18 [History] predniSONE [PredniSONE] See Taper PO DAILY #70 tablet 10/28/18 [Rx] Amiodarone [Cordarone] 200 mg PO BID #60 tablet 11/03/18 [Rx] Diltiazem CD (24hr) [Cardizem CD] 120 mg PO DAILY #30 cap.er.24h 11/03/18 [Rx] Furosemide [Lasix] 40 mg PO DAILY #30 tab 11/03/18 [Rx] Magnesium Oxide 400 mg PO DAILY #30 tablet 11/03/18 [Rx] predniSONE [PredniSONE] 30 mg PO DAILY #30 tablet 11/03/18 [Rx] Allergies/Adverse Reactions: Allergy/AdvReac Type Severity Reaction Status Date / Time bacitracin AdvReac Rash Verified 10/12/18 13:32 [From Neosporin ([id number])] Neomycin AdvReac Rash Verified 10/12/18 13:32 [From Neosporin ([id number])] polymyxin B AdvReac Rash Verified 10/12/18 13:32 [From Neosporin ([id number])] Certification: Further, I certify that my clinical findings support that this patient is homebound (i.e. absences from home require considerable and taxing effort and are for medical reasons or orthodox services or infrequently or short duration when for other reasons) because: Homebound Reason: Leaving home requires considerable and taxing effort due to condition Attestation: My signature below is to certify that this patient is under my care and that I, or nurse practitioner, or a physician's department assistant working with me, has a [id number] encounter with this patient.
[2018-11-03] MEDS ORDERED: *HR* Warfarin 5 MG TABLET PO ONE (18:00)
== END 2018-11-03 14:30 | disposition home health service (06) | DRG 178 ==
LOC: INPGRE 10-28 18:14